=== PATIENT | male | born 1965 | race Caucasian/White ===

== ENCOUNTER 2023-11-23 06:20 | Emergency (ER) | payer OTHER ==
[~2023-11-23] VITALS: Ht 182.9 cm; Wt 86.4 kg
[2023-11-23 07:05] VITALS: BP 128/83; PULSE 91; RESP 16; TEMP 98.3
[2023-11-23] MEDS: ACETAMINOPHEN 500 MG TABLET PO ONE (07:35)
[2023-11-23] MEDS: DICLOFENAC SODIUM 1% 100 GM GEL [4GM] TP ONE (08:10)
[2023-11-23] MEDS ORDERED: ACET-3385 PO (08:50)
== END 2023-11-23 09:04 | disposition home or self-care (01) ==
LOC: EMS 06:22
DX: S83.92XA Sprain of unspecified site of left knee, initial encounter (principal); E11.9 Type 2 diabetes mellitus without complications; W19.XXXA Unspecified fall, initial encounter; Y93.89 Activity, other specified; Y92.89 Other specified places as the place of occurrence of the external cause; Y99.8 Other external cause status
CPT/HCPCS: 99283